=== PATIENT | female | born 1940 | race Caucasian/White ===

== ENCOUNTER 2017-08-23 19:46 | Inpatient (IN) | payer MEDICARE ==
[~2017-08-23] VITALS: Ht 157.5 cm; Wt 73.2 kg
[~2017-08-23 19:46] MED LIST: ACCUPRIL20 MG PO; BABY ASPIRIN81 MG PO; BYSTOLIC10 MG PO; COUMADIN5 MG; DICLOFENAC SODI75 MG PO; IBUPROFEN200 MG PO; LASIX40 MG; LEVOTHROID200 MCG; LEVOTHYROXINE50 MCG PO; MULTI-VITAMIN1 EACH; NEURONTIN300 MG PO; NORCO 7.5-3251 EACH PO; TURMERIC500 MG; TYLENOL WITH C1 EACH PO; WARFARIN SODIUM3 MG PO
[2017-08-23 20:20] LABS: BASOPHILS # (AUTO) 0.1 (0.0-0.1); BASOPHILS % 0.9 % (0.0-1.0); EOSINOPHILS # (AUTO) 0.4 (0.0-0.4); EOSINOPHILS % 4.2 % (0.0-6.0); HEMATOCRIT 43.4 % (34.2-44.1); HEMOGLOBIN 14.9 g/dL (12.0-16.0); LYMPHOCYTES # (AUTO) 2.6 (1.0-3.2); LYMPHOCYTES % 27.1 % (18.0-39.1); MEAN CORPUSCULAR HEMOGLOBIN 30.4 pg (28-32); MEAN CORPUSCULAR HGB CONC 34.3 g/dL (31-35); MEAN CORPUSCULAR VOLUME 88.6 fL (81-99); MONOCYTES # (AUTO) 1.4 (0.2-0.8); MONOCYTES % 14.4 % (4.4-11.3); NEUTROPHILS # (AUTO) 5.1 (2.1-6.9); NEUTROPHILS % 53.1 % (38.7-80.0); PLATELET COUNT 255 x10e3/uL (140-360); RED CELL DISTRIBUTION WIDTH 14.6 % (11.7-14.4)
[2017-08-23 20:38] LABS: ALBUMIN 3.8 g/dL (3.5-5.0); ALBUMIN/GLOBULIN RATIO 0.9 (0.8-2.0); ALKALINE PHOSPHATASE 80 IU/L (40-150); ANION GAP 13.7 mmol/L (8-16); BLOOD UREA NITROGEN 9 mg/dL (7-26); BUN/CREATININE RATIO 12 (6-25); CALCIUM 9.2 mg/dL (8.4-10.2); CARBON DIOXIDE 26 mmol/L (22-29); CHLORIDE 97 mmol/L (98-107); CREATINE KINASE 33 IU/L (29-168); CREATININE, SERUM 0.75 mg/dL (0.57-1.11); EST GLOMERULAR FILTRATION RATE > 60 ML/MIN (60-); GLUCOSE 115 mg/dL (74-118); LIPASE 43 U/L (8-78); POTASSIUM 3.7 mmol/L (3.5-5.1); SODIUM 133 mmol/L (136-145)
[2017-08-23 20:44] LABS: ALANINE AMINOTRANSFERASE < 6 IU/L (0-55); TROPONIN I 0.008 ng/mL (0-0.300)
--- NOTE | 2017-08-23 20:45 | Diagnostic Imaging Report ---
EXAMINATION: CHEST SINGLE (PORTABLE) INDICATION: Possible stroke. COMPARISON: CT abdomen pelvis 07/26/2017. Chest x-ray 12/09/2016 FINDINGS: AP view TUBES and LINES: None. LUNGS: Lungs are well inflated. Bilateral peribronchial cuffing. There is no evidence of consolidative pneumonia or pulmonary edema. PLEURA: No pleural effusion or pneumothorax. HEART AND MEDIASTINUM: The cardiomediastinal silhouette is unremarkable. BONES AND SOFT TISSUES: Chronic appearing deformity of the right proximal humerus. Bilateral axillary surgical clips. UPPER ABDOMEN: No free air under the diaphragm. IMPRESSION: Bilateral peribronchial cuffing, which could represent viral etiology or reactive airway disease. Signed by: Dr. Angel Anaya M.D. on 08/23/2017 8:41 PM
--- NOTE | 2017-08-23 21:12 | Diagnostic Imaging Report ---
History:Facial droop slurred speech Comparison studies:head CT 12/09/16 Technique: Axial images were obtained from the skull base to the vertex. Coronal and sagittal images reconstructed from the axial data. Intravenous contrast: None Findings: Scalp/skull: No abnormalities. Extra-axial spaces: No masses. No fluid collections. Brain sulci: Mildly prominent. Ventricles: Mild compensatory dilatation. No hydrocephalus. Parenchyma: Few hypodensities in the supratentorial white matter are small vessel ischemic changes. Encephalomalacia at the bilateral superior parietal lobules and within the left superolateral occipital lobe. There is a chronic lacunar infarct in the left thalamus. No masses, hemorrhage or acute cortical vascular insults. Sellar/suprasellar region: No abnormalities. Craniocervical junction: Patent foramen magnum. No Chiari one malformation. Incidental findings: Atherosclerotic calcifications in the carotid siphons and vertebral arteries . Impression: No acute abnormalities. No significant changes from the previous head CT 12/09/16. Chronic findings: 1. Mild generalized volume loss. 2. Mild supratentorial white matter small vessel ischemic changes. 3. Chronic insults: Left thalamus, bilateral superior parietal lobules and in the left superolateral occipital lobe. Signed by: DR Yann Hernandez M.D. on 08/23/2017 9:08 PM
[2017-08-23 21:13] LABS: INR 2.78; PROTHROMBIN TIME 30.8 seconds (11.9-14.5)
[2017-08-23 21:14] LABS: PARTIAL THROMBOPLASTIN TIME 48.2 seconds (23.8-35.5)
[2017-08-23 21:58] LABS: BILIRUBIN,URINE NEGATIVE (NEGATIVE); CLARITY,URINE CLOUDY (CLEAR); COLOR,URINE YELLOW (YELLOW); KETONES,URINE NEGATIVE (NEGATIVE); LEUKOCYTE ESTERASE ,URINE 1+ (NEGATIVE); NITRITE,URINE NEGATIVE (NEGATIVE); PROTEIN,URINE DIPSTICK NEGATIVE (NEGATIVE); URINE UROBILINOGEN 0.2 mg/dL (0.2 - 1)
[2017-08-23] MEDS ORDERED: SODIUM CHLORIDE FLUSH 10 ML SYR INJ PRN (22:00)
[2017-08-23] MEDS ORDERED: ONDANSETRON HCL INJ 2 MG/ML VIAL IV PRN (22:00)
[2017-08-23 22:09] LABS: BACTERIA,URINE MANY /HPF; EPITHELIAL CELLS,URINE FEW /LPF; WBC,URINE (MAN) >50 /HPF (0-5)
[2017-08-23] MEDS ORDERED: CEFTRIAXONE SOD 1 GM VIAL IV ONE (22:15)
[2017-08-23] MEDS: CEFTRIAXONE SOD 1 GM VIAL IV SCH (23:00)
[2017-08-23 23:17] VITALS: BP 144/67
[2017-08-23 23:36] VITALS: BP 144/67
[2017-08-24] VITALS (7 sets, daily range): BP systolic 145–198; BP diastolic 66–86
[2017-08-24 06:55] LABS: BASOPHILS # (AUTO) 0.1 (0.0-0.1); BASOPHILS % 1.2 % (0.0-1.0); EOSINOPHILS # (AUTO) 0.4 (0.0-0.4); EOSINOPHILS % 5.7 % (0.0-6.0); HEMATOCRIT 37.6 % (34.2-44.1); HEMOGLOBIN 12.7 g/dL (12.0-16.0); LYMPHOCYTES # (AUTO) 2.3 (1.0-3.2); LYMPHOCYTES % 30.3 % (18.0-39.1); MEAN CORPUSCULAR HEMOGLOBIN 29.9 pg (28-32); MEAN CORPUSCULAR HGB CONC 33.8 g/dL (31-35); MEAN CORPUSCULAR VOLUME 88.5 fL (81-99); MONOCYTES # (AUTO) 0.9 (0.2-0.8); MONOCYTES % 12.5 % (4.4-11.3); NEUTROPHILS # (AUTO) 3.8 (2.1-6.9); PLATELET COUNT 219 x10e3/uL (140-360); RED BLOOD COUNT 4.25 x10e6/uL (3.6-5.1); RED CELL DISTRIBUTION WIDTH 14.5 % (11.7-14.4)
[2017-08-24 07:32] LABS: ALANINE AMINOTRANSFERASE 7 IU/L (0-55); ALBUMIN 2.9 g/dL (3.5-5.0); ALBUMIN/GLOBULIN RATIO 0.9 (0.8-2.0); ALKALINE PHOSPHATASE 61 IU/L (40-150); ANION GAP 8.7 mmol/L (8-16); BLOOD UREA NITROGEN 8 mg/dL (7-26); BUN/CREATININE RATIO 13 (6-25); CALCIUM 8.3 mg/dL (8.4-10.2); CARBON DIOXIDE 28 mmol/L (22-29); CHLORIDE 101 mmol/L (98-107); EST GLOMERULAR FILTRATION RATE > 60 ML/MIN (60-); GLUCOSE 101 mg/dL (74-118); POTASSIUM 3.7 mmol/L (3.5-5.1); SODIUM 134 mmol/L (136-145)
[2017-08-24] MEDS: CEFTRIAXONE SOD 1 GM VIAL IV SCH ×2 (11:06→22:41)
[2017-08-24] MEDS ORDERED: HYDROCODONE/APAP 7.5MG-325MG 1 EA TAB PO PRN (11:45)
[2017-08-24] MEDS ORDERED: WARFARIN SOD 5 MG TAB PO SCH (17:00)
[2017-08-24] MEDS: GABAPENTIN 300 MG CAP PO SCH (17:31)
[2017-08-25] MEDS: ENALAPRILAT IV INJ 1.25 MG/ML VIAL IV PRN ×2 (01:38→09:08)
[2017-08-25 02:42] VITALS: BP 172/80
[2017-08-25 03:18] VITALS: BP 145/75
[2017-08-25 05:40] VITALS: BP 188/90
[2017-08-25] MEDS ORDERED: LEVOTHYROXINE SODIUM 50 MCG TAB PO SCH (06:00)
[2017-08-25 07:35] VITALS: BP 186/81
[2017-08-25 08:52] VITALS: BP 186/81
[2017-08-25] MEDS ORDERED: MULTIVITAMINS/MINERALS TAB PO SCH (09:00)
[2017-08-25] MEDS ORDERED: QUINAPRIL HCL 20 MG TAB PO SCH (09:00)
[2017-08-25] MEDS ORDERED: FUROSEMIDE 40 MG TAB PO SCH (09:00)
[2017-08-25] MEDS ORDERED: WARFARIN SOD 3 MG TAB PO SCH (09:00)
[2017-08-25] MEDS: GABAPENTIN 300 MG CAP PO SCH (09:08)
[2017-08-25] MEDS ORDERED: MACRODANTIN100 MG PO (11:10)
[2017-08-25] MEDS: CEFTRIAXONE SOD 1 GM VIAL IV SCH (11:20)
== END 2017-08-25 11:35 | disposition home or self-care (01) | DRG 69 ==
LOC: ER 19:46 → ERHOLD 22:16 → MED/SURG 22:17
PROVIDERS: ADMIT Internal Medicine; ATTEND Internal Medicine
DX: G45.9 Transient cerebral ischemic attack, unspecified (principal); N39.0 Urinary tract infection, site not specified; J44.9 Chronic obstructive pulmonary disease, unspecified; I10 Essential (primary) hypertension; I73.9 Peripheral vascular disease, unspecified; Z86.73 Personal history of transient ischemic attack (TIA), and cerebral infarction without residual deficits
CPT/HCPCS: 36415; 70450; 71010; 80053; 81001; 82550; 82553; 83605; 83690; 84484; 85025; 85610; 85730; 87086; 87186; 87400; 93005; 93306; 96376; 99284; J0696

== ENCOUNTER 2017-09-05 14:46 | Inpatient (IN) | payer MEDICARE ==
[~2017-09-05] VITALS: Ht 157.5 cm; Wt 76.4 kg
[~2017-09-05 14:46] MED LIST changes: +MACRODANTIN100 MG PO
--- NOTE | 2017-09-05 16:04 | Diagnostic Imaging Report ---
PROCEDURE: A single AP view of the chest. COMPARISON: 08/23/17 INDICATIONS: WEAKNESS, FALL FINDINGS: Lines/tubes: None. Lungs: The lungs are well inflated. Unchanged central peribronchovascular thickening/cuffing. Pleura: There is no significant pleural effusion or pneumothorax. Heart and mediastinum: The heart and the mediastinum are unremarkable. Bones: No acute bony abnormality. Again seen comminuted fracture and deformity of the right humeral head. Bilateral axillary surgical clips. IMPRESSION: No significant interval change from prior exam. Unchanged central peribronchovascular thickening/cuffing. Dictated by: El Noel M.D. on 09/05/2017 at 16:13 Electronically approved by: El Noel M.D. on 09/05/2017 at 16:13
--- NOTE | 2017-09-05 16:43 | Diagnostic Imaging Report ---
History:Left-sided weakness, fall Comparison studies:Head CT 08/23/2014 and 12/09/16 Technique: Axial images were obtained from the skull base to the vertex. Coronal and sagittal images reconstructed from the axial data. Intravenous contrast: None Findings: Scalp/skull: No abnormalities. Extra-axial spaces: No masses. No fluid collections. Brain sulci: Mildly prominent. Ventricles: Mild compensatory dilatation. No hydrocephalus. Parenchyma: Few hypodensities in the supratentorial white matter are small vessel ischemic changes. Encephalomalacia at the bilateral superior parietal lobules, right genu of the corpus callosum and within the left superolateral occipital lobe. There is a chronic lacunar infarct in the left thalamus. No masses, hemorrhage or acute cortical vascular insults. Sellar/suprasellar region: No abnormalities. Craniocervical junction: Patent foramen magnum. No Chiari one malformation. Incidental findings: Atherosclerotic calcifications in the carotid siphons and vertebral arteries . Impression: No acute abnormalities. No significant changes from the previous head 08/23/2017. Chronic findings: 1. Mild generalized volume loss. 2. Mild supratentorial white matter small vessel ischemic changes. 3. Chronic insults: Left thalamus, bilateral superior parietal lobules and in the left superolateral occipital lobe. Signed by: DR Yann Hernandez M.D. on 09/05/2017 4:39 PM
[2017-09-05] MEDS ORDERED: HYDRALAZINE HCL 20 MG/ML VIAL IV STA (18:09)
[2017-09-05] MEDS ORDERED: SODIUM CHLORIDE FLUSH 10 ML SYR INJ PRN (18:15)
[2017-09-05 18:34] LABS: BASOPHILS # (AUTO) 0.1 (0.0-0.1); BASOPHILS % 0.9 % (0.0-1.0); EOSINOPHILS # (AUTO) 0.4 (0.0-0.4); HEMATOCRIT 44.4 % (34.2-44.1); LYMPHOCYTES # (AUTO) 2.2 (1.0-3.2); LYMPHOCYTES % 23.3 % (18.0-39.1); MEAN CORPUSCULAR HEMOGLOBIN 30.1 pg (28-32); MEAN CORPUSCULAR HGB CONC 33.8 g/dL (31-35); MONOCYTES # (AUTO) 1.1 (0.2-0.8); MONOCYTES % 11.4 % (4.4-11.3); NEUTROPHILS # (AUTO) 5.6 (2.1-6.9); NEUTROPHILS % 60.1 % (38.7-80.0); PLATELET COUNT 243 x10e3/uL (140-360); RED BLOOD COUNT 4.99 x10e6/uL (3.6-5.1); RED CELL DISTRIBUTION WIDTH 14.4 % (11.7-14.4)
[2017-09-05 18:43] LABS: INR 0.95; PROTHROMBIN TIME 13.2 seconds (11.9-14.5)
[2017-09-05 18:44] LABS: PARTIAL THROMBOPLASTIN TIME 35.2 seconds (23.8-35.5)
[2017-09-05] MEDS ORDERED: WARFARIN SODIU2.5 MG PO (18:46)
[2017-09-05 18:52] LABS: ALANINE AMINOTRANSFERASE 6 IU/L (0-55); ALBUMIN 3.7 g/dL (3.5-5.0); ALBUMIN/GLOBULIN RATIO 0.9 (0.8-2.0); ALKALINE PHOSPHATASE 70 IU/L (40-150); ANION GAP 12.7 mmol/L (8-16); BLOOD UREA NITROGEN 8 mg/dL (7-26); BUN/CREATININE RATIO 12 (6-25); CALCIUM 9.2 mg/dL (8.4-10.2); CARBON DIOXIDE 28 mmol/L (22-29); CHLORIDE 96 mmol/L (98-107); CREATINE KINASE 21 IU/L (29-168); CREATININE, SERUM 0.65 mg/dL (0.57-1.11); EST GLOMERULAR FILTRATION RATE > 60 ML/MIN (60-); GLUCOSE 79 mg/dL (74-118); POTASSIUM 3.7 mmol/L (3.5-5.1); SODIUM 133 mmol/L (136-145)
[2017-09-06] VITALS (8 sets, daily range): BP systolic 104–181; BP diastolic 49–80
[2017-09-06] MEDS: HYDRALAZINE HCL 20 MG/ML VIAL IV PRN (01:00)
[2017-09-06] MEDS: MORPHINE SULFATE 2 MG/ML SYR IV PRN ×4 (03:03→20:45)
[2017-09-06 03:15] LABS: CHOL/HDL RATIO 4.9 (3.0-3.6)
[2017-09-06 03:22] LABS: CREATINE KINASE MB 0.9 ng/mL (0.00-5.00)
[2017-09-06] MEDS ORDERED: GADOBENATE DIMEGLUMINE 1 ML IV ONE (08:55)
[2017-09-06] MEDS ORDERED: ACETAMINOPHEN/CODEINE 300MG - 30MG TAB PO SCH (09:00)
[2017-09-06] MEDS ORDERED: QUINAPRIL HCL 20 MG TAB PO SCH (09:00)
[2017-09-06] MEDS ORDERED: LEVOTHYROXINE SODIUM 50 MCG TAB PO SCH (09:00)
[2017-09-06] MEDS: LEVOTHYROXINE SODIUM 50 MCG TAB PO SCH (09:45)
[2017-09-06] MEDS: ASPIRIN 81 MG ENTERIC COATED PO SCH (09:45)
[2017-09-06] MEDS: GABAPENTIN 300 MG CAP PO SCH ×2 (09:45→16:24)
[2017-09-06] MEDS: ENOXAPARIN SOD INJ 60 MG/0.6 ML SYR SC SCH ×2 (09:45→20:45)
[2017-09-06 11:20] LABS: CREATINE KINASE MB 0.8 ng/mL (0.00-5.00)
--- NOTE | 2017-09-06 12:14 | Diagnostic Imaging Report ---
EXAMINATION: MRI of the brain with and without contrast HISTORY: TIA, left-sided weakness and facial drooping for the last day COMPARISON: Head CT on 120 04/25 and 08/23/2017 TECHNIQUE: Pre-contrast: Sagittal T2; axial T1-IR, T2, MPGR, DWI, FLAIR; Post-contrast: axial and coronal T1. Intravenous contrast: 15 mL of MultiHance. IMAGE QUALITY: Adequate. FINDINGS: Parenchyma: 1. Persistent moderate confluent periventricular and thomas radiata white matter T2 and FLAIR hyperintense foci, most likely nonspecific chronic microvascular ischemic changes. 2. Small chronic lacunar infarct in the left medial thalamus and marisela. 3. Unchanged chronic cortical infarct in the bilateral interparietal cortex almost in a watershed distribution (MCA/[employer]). 4. No mass or hemorrhage. No acute or chronic vascular insult. No abnormal enhancement Skull: No abnormal signal intensity or enhancement. Major arteries: Expected flow voids present. Dural sinuses: Expected flow voids present. Ventricles: No hydrocephalus or displacement. Subarachnoid spaces: No abnormal signal intensity or enhancement. Brain volume: Normal for age. Foramen magnum: No mass, Chiari malformation, or basilar invagination. Sella: No gross mass. Paranasal/mastoid sinuses: Unremarkable. IMPRESSION: 1. No acute infarcts. 2. Unchanged mild chronic microvascular ischemic changes. 3. Unchanged chronic cortical infarct in the bilateral parietal lobes. 4. Again seen is chronic lacunar infarct in the left thalamus. Signed by: Dr. Siri Morrow M.D. on 09/06/2017 12:10 PM
--- NOTE | 2017-09-06 16:58 | Consultation ---
DATE OF CONSULTATION: September 06, 2017 CARDIOLOGY CONSULTATION REQUESTING PHYSICIAN: Dr. Lobo Mcmanus REASON FOR CONSULTATION: TIA. HISTORY OF PRESENT ILLNESS: This is a 76-year-old woman with a history of peripheral arterial disease, hypertension, hyperlipidemia, hypothyroidism, who presented with left-sided weakness and difficulty with speech. She presented to the ER for evaluation. She denies any chest pain, shortness of breath, palpitations, edema, orthopnea or PND. Her symptoms began yesterday, and she indicates they are still ongoing. However, MRI brain did not reveal any acute infarct. It revealed unchanged amount of chronic microvascular ischemic changes as well as unchanged chronic cortical infarct in the bilateral parietal lobes and a chronic lacunar infarct in the left thalamus. REVIEW OF SYSTEMS: Negative, except as per HPI. PAST MEDICAL HISTORY 1. Peripheral arterial disease. 2. Hypertension. 3. Hyperlipidemia. 4. Hypothyroidism. ALLERGIES: PLEASE SEE EMR. MEDICATIONS: Please see medication list. SOCIAL HISTORY: Current tobacco. No alcohol. FAMILY HISTORY: Noncontributory. PHYSICAL EXAMINATION VITAL SIGNS: Temperature 97.9 degrees, pulse 62, respiratory rate 18, blood pressure 142/65, oxygen saturation 93% on room air. GENERAL: Well-developed, well-nourished woman in no acute distress. HEENT: Normocephalic and atraumatic. She has a left-sided facial droop as well as left-sided weakness. NECK: Supple. No thyromegaly or cervical lymphadenopathy. No carotid bruit. LUNGS: Clear to auscultation bilaterally. No wheezes or crackles. CARDIOVASCULAR: Normal rate, regular rhythm. No murmur. Normal S1 and S2. ABDOMEN: Soft. Nontender. EXTREMITIES: No edema. LABS: Troponin 0.005. Cholesterol 188, LDL 136, HDL 38. IMPRESSION 1. Transient ischemic attack. 2. Peripheral arterial disease. 3. Hypertension. 4. Hyperlipidemia. 5. Hypothyroidism. RECOMMENDATIONS 1. Further evaluation of the patient's focal neurological deficits per neurology. Will obtain carotid Dopplers if none have been done recently. Patient needs statin therapy. We will start given her elevated LDL and peripheral arterial disease. She was initially scheduled for atherectomy of her femoral artery today before she was admitted. We will reschedule. We will have the patient follow up with Dr. Jones in the office and reschedule. 2. Continue monitoring the patient on telemetry. 3. Physical therapy as tolerated. Thank you for this consult. We will continue to follow. Job#: [id number] MH
[2017-09-06] MEDS: ONDANSETRON HCL INJ 2 MG/ML VIAL IV PRN (20:45)
[2017-09-07] VITALS (8 sets, daily range): BP systolic 128–161; BP diastolic 62–75
[2017-09-07] MEDS: LEVOTHYROXINE SODIUM 50 MCG TAB PO SCH (06:14)
[2017-09-07] MEDS: MORPHINE SULFATE 2 MG/ML SYR IV PRN (06:22)
[2017-09-07] MEDS: ONDANSETRON HCL INJ 2 MG/ML VIAL IV PRN (06:22)
--- NOTE | 2017-09-07 08:27 | Consultation ---
DATE OF CONSULTATION: September 06, 2017 NEUROLOGY CONSULTATION HISTORY OF PRESENT ILLNESS: Ms. Cronin is a 76-year-old [id number] woman with past medical history significant for a prior stroke 2 weeks ago with unknown residual deficits, hypertension, and tobacco use, who presented to the emergency center at [facility] on September 05, 2017 with dysarthria and left hemiparesis. 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 At approximately mid morning on September 05, 2017, the patient experienced the abrupt onset of dysarthria and left hemiparesis effecting the face, arm, and leg. Due to the weakness in her left leg, the patient's balance and gait were impaired. Ms. Cronin does not report a new or worsening visual field cut, numbness, dizziness, or confusion in conjunction with the above symptoms. The patient's son noticed Ms. Cronin's worsened dysarthria and left-sided weakness. He brought her to the emergency center at [facility] for further evaluation. While in the emergency center, the patient underwent a CT of the brain without contrast. This study did not show evidence of acute ischemia, hemorrhage, mass or mass affect. It did show chronic ischemic strokes in the left thalamus, bilateral superior parietal lobules, and in the left superolateral occipital lobe. Ms. Cronin was then admitted to the intermediate care unit of [facility] for further evaluation and treatment. REVIEW OF SYSTEMS: As per history of present illness. The patient endorses low back pain. Otherwise, a 12-point review of systems is negative. PAST MEDICAL HISTORY: Hypertension, COPD, thyroid disease, osteoarthritis, a prior history of urinary tract infections, depression, prior stroke, and left breast cancer. PAST SURGICAL HISTORY: Bilateral mastectomies and hysterectomy. FAMILY HISTORY: The patient's maternal grandmother from an unknown cancer. The patient's mother in her 80s. She had an unknown cancer and Alzheimer disease. Ms. Cronin has a half sister who had breast cancer. She has a 2nd half sister who has headaches and a seizure disorder. A half brother from drowning. A 2nd half brother has mental illness. Ms. Cronin has 3 children. Her oldest son is in his 50s and has had 3 myocardial infarctions. Her younger son is healthy. Her daughter has foot drop. SOCIAL HISTORY: The patient quit school in the 11th grade, but later obtained her GED. 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 The patient is . Ms. Cronin does endorse a [id number] history of tobacco use. She currently smokes 1 pack per day, but has smoked 2 packs per day in the past. The patient endorses occasional alcohol use. She does report a history of heavier alcohol use. Ms. Cronin does smoke marijuana prior to sleep most nights of the week. MEDICATIONS: Ms. Cronin reports takin. Levothyroxine, dose unknown. 2. Tylenol No. 3, frequency unknown. 3. A diuretic at home. 4. Two or 3 other medications, but cannot recall their names, doses, route of ingestion, etc. On review of the patient's chart, the patient's home medications are as follows: 1. Levothyroxine 50 mcg by mouth in the morning. 2. Tylenol No. 3, 1 tablet by mouth 3 times daily. 3. Quinapril 20 mg by mouth daily. 4. Gabapentin 300 mg by mouth twice daily. 5. Warfarin 5 mg by mouth daily. ALLERGIES: NO KNOWN FOOD ALLERGIES. THE PATIENT DOES REPORT AN ALLERGY TO LATEX. THE PATIENT DOES NOT REPORT AN ALLERGY TO CONTRAST MATERIAL. OF NOTE, REVIEW OF THE PATIENT'S ELECTRONIC MEDICAL RECORD INDICATES AN ALLERGY TO PENICILLIN WELL. PHYSICAL EXAMINATION VITAL SIGNS: Height 5 feet 2 inches, weight 160 pounds, BMI 29.26, temperature 96.2 degrees Fahrenheit, blood pressure 105/54 mmHg, pulse 59 beats per minute, respiratory rate 20 breaths per minute, oxygen saturation 91% on room air. GENERAL: The patient is awake and alert, does not appear distressed. She is overweight. HEENT: Normocephalic, atraumatic. Pupils are equal, round and reactive to light. Moist mucous membranes. NECK: Supple. No appreciable thyromegaly, no appreciable carotid bruits. CARDIOVASCULAR: S1, S2, regular rate and rhythm. There is a low-grade systolic ejection murmur. No rubs or gallops. RESPIRATORY: Clear to auscultation bilaterally. No wheezes, rhonchi or rales. EXTREMITIES: No clubbing, cyanosis or edema. The posterior tibial and dorsalis pedis pulses are 1+ and symmetric. SKIN: Warm. Dry skin and multiple ecchymoses over the arms and legs. NEUROLOGIC, MEMORY/ATTENTION: The patient is awake and alert, oriented to person and place. Cranial nerves: Cranial nerve I -- not tested. Cranial nerve II, III, IV, and -- pupils are equal and round, react briskly to light (from 4 mm to 2 mm), extraocular movements intact, no nystagmus. Cranial nerve V -- sensation to light touch and pin prick is intact in the bilateral V1 through V3 distributions. Strength of the temporalis and masseter muscles is within normal limits. Cranial nerve VII -- the face is asymmetric with moderate to severe left central facial weakness. Cranial nerve VIII -- hearing is intact to finger rub bilaterally. Cranial nerve IX, X -- the soft palate elevates equally and symmetrically. Cranial nerve XI -- normal strength of the bilateral sternocleidomastoid and trapezius muscles. Cranial nerve XII -- the tongue protrudes midline and moves symmetrically from side to side. Strength: Bulk is normal and strength is 5/5 in the right deltoid, triceps, biceps, wrist flexors and extensors, finger flexors and extensors, intrinsic hand muscles, hip flexors, knee flexors and extensors, ankle dorsal flexion and plantar flexion and intrinsic foot muscles. Tone is normal in the right arm and leg. Strength in the left arm is grossly 1/5. Strength in the left leg is grossly 1/5 with positive Chandra sign. Tone is decreased in the left arm. DTRs: Deep tendon reflexes are diminished throughout. Sensation: Sensation is intact to light touch in both arms and both legs. Sensation to pin prick is decreased over the left arm. Cerebellar: Oeykma-bxer-imaaar and heel-taylor movements are impaired on the left side, but within the bounds of paresis. Gait: Deferred as the patient is at risk for falls. Speech: Spontaneous speech is moderately dysarthric. No aphasia is appreciated. Repetition is intact. Involuntary movements: None. Pronator drift: Left arm and leg. LABORATORY DATA: Sodium 133, potassium 3.7, chloride 96, carbon dioxide 28, anion gap 12.7, BUN 8, creatinine 0.65, estimated GFR greater than 60, BUN to creatinine ratio 12, glucose 79, calcium 9.2, total bilirubin 0.9, AST 17, ALT 6, alkaline phosphatase 7, creatinine kinase 21, 24, and 20. CK MB 0.90, 0.90, 0.80. Troponin I 0.040, 0.009, 0.005. Total protein 7.7. Albumin 3.7. Globulin 4.0. Albumin to globulin ratio 0.9. The CBC with differential and platelets reveals a white blood cell count of 9.35 with a right shift with neutrophils of 60.1%, lymphocytes of 23.3%, monocytes of 11.4%, eosinophils of 4.0% and basophils of 0.9%. The hemoglobin is 14.0, hematocrit 44.4, platelet count 243,000. PT is 13.2, INR 0.95, PTT 35.2. DIAGNOSTIC STUDIES: CT of the brain without contrast on 09/05/2017: There is no evidence of acute ischemia, hemorrhage, mass or mass affect. Remote ischemic infarcts are seen in the left thalamus, bilateral superior parietal lobules, and in the left superolateral occipital lobe. Chest x-ray on 09/05/2017: No significant interval change from prior exam. Unchanged central peribronchovascular thickening/cuffing. MRI of the brain with and without contrast on 09/06/2017: No acute ischemia or hemorrhage. Unchanged mild chronic small vessel ischemic disease. Remote ischemic strokes are seen in the left thalamus and bilateral parietal lobes. ASSESSMENT AND PLAN: Ms. Cronin is a 76, [id number] woman with multiple vascular risk factors who presented to [facility] on September 05, 2017 with dysarthria and left hemiparesis involving the face, arm, and leg. 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 It is unclear whether these symptoms resulted from her stroke, which occurred 2 weeks ago and worsened 24 hours ago, or if these symptoms are brand new. The patient's neurological examination is significant for moderate to severe left hemiparesis effecting the face, arm, and leg. Ms. Cronin's speech is moderately dysarthric as well. Lastly, the patient reports possible decreased sensation to pin prick over the left arm. The patient's laboratory data and imaging studies have been reviewed and are documented above. Based on the results of the MRI of the brain with and without contrast, it does not appear that the patient has experienced an acute ischemic stroke within the past 24 hours. However, not knowing what her deficits were prior to this admission, it makes it difficult to discern if these symptoms are, in fact, new, or if there has been worsening of known deficits. Ms. Cronin's blood pressure was markedly elevated upon admission to the emergency center on September 05, 2017. Such high blood pressure can cause recrudesce of prior deficits. In other words, symptoms from a prior neurological insult can become more prominent. Due to a lack of clear understanding regarding the patient's current presentation, a full stroke evaluation is recommended. 1. The patient is admitted to telemetry. She will be monitored for a cardiac arrhythmia, which could predispose her to having multiple strokes. 2. As noted above, an MRI of the brain with and without contrast performed today, 09/06/2017, did not demonstrate any areas of acute/subacute ischemia. 3. Bilateral carotid ultrasound, complete echocardiogram, lipid panel and hemoglobin A1c will be ordered for further evaluation. 4. Ms. Cronin was taking warfarin 5 mg by mouth daily for an unclear reason. Until clarification is obtained, she will continue with therapeutic dosing of Lovenox 60 mg injected subcutaneously every 12 hours. 5. Allow permissive hypertension at this time. The patient's goal systolic blood pressure is 160 to 180 mmHg. Permissive hypertension should be allowed pending the results of the bilateral carotid artery ultrasound. In an effort to achieve these higher blood pressures, Quinapril will be discontinued for the time being. 6. Speech and physical therapy consultations have been ordered. 7. DVT prophylaxis -- The patient is receiving therapeutic dosing of Lovenox. 8. GI prophylaxis -- Ms. Cronin will be prescribed Pepcid 20 mg by mouth daily. 9. Ms. Cronin was asked to limit the use of analgesic medications. Administration of analgesics may cause drowsiness, confusion, slurred speech, etc. In this instance, it would be difficult to ascertain whether the worsening of symptoms was a medication effect or due to a new vascular insult. This was explained to Ms. Cronin who voiced her understanding. She agreed to take Tylenol No. 3 and/or morphine strictly on an as needed basis. 10. Smoking cessation counseling was provided to the patient. Thank you for this consultation. I will continue to follow the patient with you while she remains in the hospital. Time spent: 70 minutes. Job#: [id number] [facility] HOSPITALSharri
[2017-09-07] MEDS: FAMOTIDINE 20 MG TAB PO SCH (08:58)
[2017-09-07] MEDS: GABAPENTIN 300 MG CAP PO SCH ×2 (08:58→16:55)
[2017-09-07] MEDS: ASPIRIN 81 MG ENTERIC COATED PO SCH (08:58)
[2017-09-07] MEDS: ENOXAPARIN SOD INJ 60 MG/0.6 ML SYR SC SCH ×2 (08:58→20:59)
--- NOTE | 2017-09-07 13:26 | Progress Note ---
DATE: September 07, 2017 CARDIOLOGY PROGRESS NOTE SUBJECTIVE: Patient denies chest pain or shortness of breath. She continues to have left-sided weakness. OBJECTIVE VITAL SIGNS: Temperature 98.9 degrees, pulse 58, respiratory rate 20, blood pressure 136/65, oxygen saturation 93% on room air. GENERAL: Awake, alert, in no acute distress. LUNGS: Clear to auscultation bilaterally. No wheezes or crackles. CARDIOVASCULAR: Normal rate, regular rhythm. No murmur. Normal S1 and S2. ABDOMEN: Soft, nontender. EXTREMITIES: No edema. NEUROLOGIC: Left-sided facial droop and left-sided weakness are noted. CARDIAC MEDICATIONS 1. Enoxaparin 60 mg subcu q.12 hours. 2. Aspirin 81 mg p.o. daily. 3. Levothyroxine 50 mcg p.o. daily. 4. Atorvastatin 40 mg p.o. q.h.s. LABS: None today. TELEMETRY: Normal sinus rhythm. IMPRESSION 1. Left-sided weakness. 2. Peripheral arterial disease. 3. Hypertension. 4. Hyperlipidemia. 5. Hypothyroidism. RECOMMENDATIONS: Further evaluation of the patient's focal neurologic deficits per neurology. Carotid Dopplers have been done, we will review the images. Continue current cardiac medications. She will need to follow up with Dr. Jones after discharge for rescheduling of her femoral artery atherectomy. In the meantime while she is undergoing evaluation in the hospital, continue monitoring the patient on telemetry. Physical therapy as tolerated. Thank you for this consult. We will continue to follow. Job#: [id number] ANGELO
[2017-09-07] MEDS: ACETAMINOPHEN/CODEINE 300MG - 30MG TAB PO PRN ×2 (15:41→20:59)
[2017-09-07] MEDS: ATORVASTATIN 40 MG TAB PO SCH (20:59)
[2017-09-07] MEDS ORDERED: ATORVASTATIN 20 MG TAB PO SCH (21:00)
[2017-09-08] VITALS (8 sets, daily range): BP systolic 117–187; BP diastolic 55–74
[2017-09-08] MEDS: LEVOTHYROXINE SODIUM 50 MCG TAB PO SCH (06:32)
[2017-09-08] MEDS: ACETAMINOPHEN/CODEINE 300MG - 30MG TAB PO PRN ×2 (07:48→17:54)
[2017-09-08] MEDS: ENOXAPARIN SOD INJ 60 MG/0.6 ML SYR SC SCH ×2 (08:27→21:19)
[2017-09-08] MEDS: FAMOTIDINE 20 MG TAB PO SCH (08:27)
[2017-09-08] MEDS: ASPIRIN 81 MG ENTERIC COATED PO SCH (08:27)
[2017-09-08] MEDS: GABAPENTIN 300 MG CAP PO SCH ×2 (08:27→17:12)
[2017-09-08] MEDS: HYDRALAZINE HCL 20 MG/ML VIAL IV PRN (09:16)
--- NOTE | 2017-09-08 12:22 | Progress Note ---
DATE: September 08, 2017 CARDIOLOGY PROGRESS NOTE SUBJECTIVE: Patient denies chest pain or shortness of breath. She continues to have left hemiparesis as well as dysarthria and left-sided facial droop. OBJECTIVE VITAL SIGNS: Temperature 97.4 degrees, pulse 56, respiratory rate 20, blood pressure 187/74, oxygen saturation 96% on 2 L nasal cannula. GENERAL: Awake, alert, in no acute distress. Sitting up in chair. LUNGS: Clear to auscultation bilaterally. No wheezes or crackles. CARDIOVASCULAR: Normal rate, regular rhythm. No murmur. Normal S1 and S2. ABDOMEN: Soft, nontender. EXTREMITIES: No edema. NEUROLOGIC: Left-sided facial droop with left-sided weakness present. CARDIAC MEDICATIONS 1. Enoxaparin 60 mg subcutaneous q.12 h. 2. Aspirin 81 mg p.o. q.a.m. 3. Levothyroxine 50 mcg p.o. daily. 4. Atorvastatin 40 mg p.o. nightly. LABS: None today. TELEMETRY: Normal sinus rhythm. IMPRESSION 1. Left-sided weakness, presumably secondary to magnetic resonance angiography negative stroke in the right middle cerebral artery distribution per neurology. 2. Peripheral arterial disease. 3. Hypertension. 4. Hyperlipidemia. 5. Hypothyroidism. 6. Tobacco use. RECOMMENDATIONS: Continue current cardiac medications. Carotid Dopplers without evidence of significant carotid artery disease. Physical therapy as tolerated. She will likely need inpatient rehab if she is able to tolerate the duration of therapies. Continue monitoring the patient on telemetry while she is admitted. Neurology has resumed the patient on her quinapril. Monitor blood pressure and titrate as needed. Based on her symptoms, she will need to follow up with Dr. Jones after discharge for rescheduling femoral artery atherectomy. Thank you for this consult. We will continue to follow. Job#: [id number] [id number]
[2017-09-08] MEDS: LACTULOSE SYRUP 20 GM/30 ML UDC PO PRN (15:26)
[2017-09-08] MEDS: ATORVASTATIN 40 MG TAB PO SCH (21:19)
[2017-09-09] VITALS (7 sets, daily range): BP systolic 124–152; BP diastolic 60–83
[2017-09-09] MEDS: LEVOTHYROXINE SODIUM 50 MCG TAB PO SCH (06:22)
[2017-09-09] MEDS: ASPIRIN 81 MG ENTERIC COATED PO SCH (09:00)
[2017-09-09] MEDS: FAMOTIDINE 20 MG TAB PO SCH (09:00)
[2017-09-09] MEDS: ENOXAPARIN SOD INJ 60 MG/0.6 ML SYR SC SCH ×2 (09:55→21:27)
[2017-09-09] MEDS: QUINAPRIL HCL 20 MG TAB PO SCH (09:55)
[2017-09-09] MEDS: GABAPENTIN 300 MG CAP PO SCH ×2 (09:55→17:20)
--- NOTE | 2017-09-09 14:51 | Progress Note ---
DATE: September 09, 2017 CARDIOLOGY PROGRESS NOTE SUBJECTIVE: Patient denies chest pain or shortness of breath. She continues to have left-sided weakness, which is slightly improving. OBJECTIVE VITAL SIGNS: Temperature 98.8 degrees, pulse 72, respiratory rate 21, blood pressure 138/76, oxygen saturation 93% on 2 L nasal cannula. GENERAL: Awake, alert, in no acute distress. LUNGS: Clear to auscultation bilaterally. No wheezes or crackles. CARDIOVASCULAR: Normal rate, regular rhythm. No murmur. Normal S1 and S2. ABDOMEN: Soft, nontender. EXTREMITIES: No edema. NEURO: Left-sided facial droop and left-sided weakness remain. CARDIAC MEDICATIONS 1. Quinapril 20 mg p.o. daily. 2. Enoxaparin 60 mg subcutaneous q.12 h. 3. Levothyroxine 50 mcg p.o. daily. 4. Atorvastatin 40 mg p.o. nightly. 5. Aspirin 81 mg p.o. daily. LABS: None today. TELEMETRY: Normal sinus rhythm. IMPRESSION 1. Left-sided weakness, presumably secondary to MRI negative stroke in the right middle cerebral artery distribution per neurology. 2. Peripheral arterial disease. 3. Hypertension. 4. Hyperlipidemia. 5. Hypothyroidism. 6. Tobacco use. RECOMMENDATIONS: Continue current cardiac medications. Patient refused placement for physical therapy. Plan is for discharge home with home physical therapy instead. Continue to monitor the patient on telemetry while admitted to evaluate for any arrhythmias. She will need to follow up with Dr. Jones after discharge to reschedule her femoral artery atherectomy. Thank you for this consult. We will continue to follow. Job#: [id number]
[2017-09-09] MEDS: LACTULOSE SYRUP 20 GM/30 ML UDC PO PRN (19:09)
[2017-09-09] MEDS: ATORVASTATIN 40 MG TAB PO SCH (21:27)
[2017-09-09] MEDS: MORPHINE SULFATE 2 MG/ML SYR IV PRN (21:27)
[2017-09-09] MEDS: ONDANSETRON HCL INJ 2 MG/ML VIAL IV PRN (21:27)
[2017-09-10 03:39] VITALS: BP 152/65
[2017-09-10] MEDS: LEVOTHYROXINE SODIUM 50 MCG TAB PO SCH (05:22)
[2017-09-10 06:39] VITALS: BP 141/69
[2017-09-10 08:00] VITALS: BP 130/62
[2017-09-10] MEDS: ENOXAPARIN SOD INJ 60 MG/0.6 ML SYR SC SCH (08:20)
[2017-09-10] MEDS: GABAPENTIN 300 MG CAP PO SCH (08:20)
[2017-09-10] MEDS: QUINAPRIL HCL 20 MG TAB PO SCH (08:20)
[2017-09-10] MEDS: FAMOTIDINE 20 MG TAB PO SCH (08:20)
[2017-09-10] MEDS: ASPIRIN 81 MG ENTERIC COATED PO SCH (08:23)
[2017-09-10 08:31] VITALS: BP 192/90
[2017-09-10 09:00] VITALS: BP 130/62
[2017-09-10 12:00] VITALS: BP 133/64
--- NOTE | 2017-09-10 12:49 | Progress Note ---
DATE: September 10, 2017 CARDIOLOGY PROGRESS NOTE: SUBJECTIVE: Ms. Cronin denies any complaints. She is ready to be discharged. She does, however, feel weak. OBJECTIVE VITAL SIGNS: Afebrile. Heart rate 68. Blood pressure 130/60. O2 sat 95%. CARDIOVASCULAR: Regular rhythm. Systolic murmur. LUNGS: Occasional crackles bilaterally. Telemetry shows sinus rhythm. ASSESSMENT: 1. Stroke. 2. Peripheral arterial disease. PLAN: The patient is in sinus rhythm. She is on appropriate medical therapy. Anticoagulation should be restarted with warfarin. She will require outpatient followup for her peripheral arterial disease. Job#: [id number]
[2017-09-10] MEDS ORDERED: LIPITOR40 MG PO (14:11)
[2017-09-10] MEDS ORDERED: ASPIR 8181 MG (14:12)
[2017-09-10] MEDS ORDERED: WARFARIN SOD 5 MG TAB PO SCH (17:00)
--- NOTE | 2017-11-09 10:18 | Discharge Summary ---
DISCHARGE DIAGNOSES 1. Cerebrovascular accident. 2. Hypertension. 3. Peripheral arterial disease. 4. Tobacco abuser. HISTORY OF PRESENT ILLNESS AND HOSPITAL COURSE: Patient is a 76-year-old lady who presented with some facial droop and weakness that was better after admission where she was brought in. Patient had already been thoroughly anticoagulated with warfarin. She was brought in and seen by both neurology and cardiology who impressed on the patient that she has got to stop her smoking. They were going to continue with the warfarin, as well as continue with her aspirin and statin therapy. Please see the specialist's notes for full details. Due to her severe peripheral arterial disease, she needs follow up as an outpatient with Dr. Jones for peripheral intervention. At the time of discharge, the patient was feeling much better. Plan was to send her to a assisted facility, but the patient refused. She wanted to go home, which was honored. She is to follow up in 1-2 weeks with me, as well as neurology, as well as Dr. Jones. Please see hospital chart for full details. GENESIS ASHLEY MD Job#: [id number] [place]
== END 2017-09-10 15:50 | disposition home health service (06) | DRG 65 ==
LOC: ER 14:46 → ERHOLD 18:57 → IMCU 09-06 00:52 → OBSVTOIN 09-07 13:29 → MED/SURG 09-07 15:13
PROVIDERS: ADMIT Internal Medicine; ATTEND Internal Medicine
DX: I63.9 Cerebral infarction, unspecified (principal); G81.94 Hemiplegia, unspecified affecting left nondominant side; I69.359 Hemiplegia and hemiparesis following cerebral infarction affecting unspecified side; I10 Essential (primary) hypertension; I73.9 Peripheral vascular disease, unspecified; E03.9 Hypothyroidism, unspecified; Z79.52 Long term (current) use of systemic steroids; F17.210 Nicotine dependence, cigarettes, uncomplicated; I25.10 Atherosclerotic heart disease of native coronary artery without angina pectoris
CPT/HCPCS: 36415; 70450; 70553; 71045; 80053; 80061; 82550; 82553; 83036; 84484; 85025; 85610; 85730; 93005; 93880; 97139; 99284; G0378; J0360; J1650; J2270; J2405